=== PATIENT | female | born 1995 | race Asian ===

== ENCOUNTER 2019-02-05 11:48 | Emergency (ER) | payer MEDICAID ==
[~2019-02-05] VITALS: Ht 162.6 cm; Wt 56.7 kg
--- NOTE | 2019-02-05 12:00 | NUR ---
ED Nurse Note: Patient came with painful lump on right breast for 1 week. Patient placed on hospital gown, skin intact.
[2019-02-05 12:03] VITALS: BP 102/69
--- NOTE | 2019-02-05 12:04 | NUR ---
ED Nurse Note: PA at bedside
[2019-02-05] MEDS ORDERED: Omnipaque-300 100ml vial INJ PRN (12:15)
[2019-02-05 12:29] LABS: BASOPHILS % (AUTO) 0.9 % (0.0-2.0); EOSINOPHILS % (AUTO) 3.5 % (0.0-3.0); HEMATOCRIT 38.5 % (37.0-47.0); HEMOGLOBIN 12.6 G/DL (12.0-16.0); LYMPHOCYTES % (AUTO) 35.8 % (20.0-45.0); MEAN CORPUSCULAR VOLUME 89 FL (80-99); MONOCYTES % (AUTO) 7.3 % (1.0-10.0); NEUTROPHILS % (AUTO) 52.6 % (45.0-75.0); PLATELET COUNT 240 K/UL (150-450); RED BLOOD COUNT 4.31 M/UL (4.20-5.40); RED CELL DISTRIBUTION WIDTH 10.7 % (11.6-14.8); WHITE BLOOD COUNT 6.7 K/UL (4.8-10.8)
[2019-02-05 12:43] LABS: ANION GAP 9 mmol/L (5-15); BLOOD UREA NITROGEN 12 mg/dL (7-18); CALCIUM 8.9 MG/DL (8.5-10.1); CARBON DIOXIDE 28 MMOL/L (21-32); CHLORIDE 105 MMOL/L (98-107); CREATININE 0.7 MG/DL (0.55-1.30); POTASSIUM 3.8 MMOL/L (3.5-5.1); SODIUM 141 MMOL/L (136-145)
[2019-02-05 12:47] LABS: ALANINE AMINOTRANSFERASE 18 U/L (12-78); ALKALINE PHOSPHATASE 48 U/L (46-116); ASPARTATE AMINO TRANSFERASE 15 U/L (15-37); BILIRUBIN,TOTAL 0.4 MG/DL (0.2-1.0)
--- NOTE | 2019-02-05 13:00 | NUR ---
ED Nurse Note: Urine collected and sent to lab
--- NOTE | 2019-02-05 14:41 | Diagnostic Imaging Report ---
Clinical Indication: Chest pain, mass, lump on right breast for one week Technique: IV administration nonionic contrast. Spiral acquisition obtained through the chest. Multiplanar reconstructions generated. Total dose length product 530 mGycm. CTDIvol(s) 45 mGy. Dose reduction achieved using automated exposure control Comparison: none Findings: The lungs are clear. No infiltrates, effusions, masses, nodules, or congestion demonstrated. The breasts are overall unremarkable. There is equivocally slightly asymmetrically increased breast tissue on the right as compared to the left. There is a slight hemispheric-shaped protuberance coming off of the upper anterior portion of the parenchymal cone which could indicate underlying mass, but this cannot be stated with any certainty as it is isoattenuating to the surrounding breast tissue. No axillary adenopathy demonstrated. The heart size is normal. No mediastinal or hilar mass or adenopathy. The thyroid is unremarkable. Included upper abdominal anatomy is unremarkable. The bones are unremarkable. Impression: Slight anterior protuberance from the upper right breast parenchymal cone as described, could indicate an isoattenuating underlying mass but this cannot be stated with any certainty. Recommend sonography for evaluation of described right or breast lump if clinically indicated No acute or significant abnormality otherwise The CT scanner at [facility] is accredited by the [employer] and the scans are performed using protocols designed to limit radiation exposure to as low as reasonably achievable to attain images of sufficient resolution adequate for diagnostic evaluation.
--- NOTE | 2019-02-05 14:49 | Emergency Room Report ---
History of Present Illness General Chief Complaint: Pain Source: Patient Present Illness HPI 24-year-old female with no significant past medical history here complaining and enlarged breast mass in the right breast. Patient reports that the mass has been there for the past year however past week she noticed that it has been growing in size. Patient denies any pain or pus drainage at the site of mass. Denies history of breast cancer, ovarian cancer, BRCA gene. a round semi- mobile mass noted in the right breast at 11 O clock . Patient is in no discomfort denies pain. Denies chest pain, shortness of breath, palpitation, and other associated symptoms. Denies nipple discharge. Both breasts look symmetrical Allergies: Coded Allergies: No Known Allergies (Unverified , 02/05/19) Patient History Past Medical History: see triage record Past Surgical History: unable to obtain Pertinent Family History: none Last Menstrual Period: 01/23/19 Now: No Immunizations: UTD Reviewed Nursing Documentation: PMH: Agreed; PSxH: Agreed Nursing Documentation-PMH Past Medical History: No Stated History Review of Systems All Other Systems: negative except mentioned in HPI Physical Exam Vital Signs Date Time Temp Pulse Resp B/P (MAP) Pulse Ox O2 Delivery O2 Flow Rate FiO2 02/05/19 11:51 98.8 83 15 102/69 (80) 99 Room Air Sp02 EP Interpretation: reviewed, normal General Appearance: no apparent distress, alert, GCS 15, non-toxic Head: normocephalic, atraumatic Eyes: bilateral eye normal inspection, bilateral eye PERRL ENT: hearing grossly normal, normal pharynx, no angioedema, normal voice Neck: full range of motion, supple/symm/no masses Respiratory: chest non-tender, lungs clear, normal breath sounds, no rhonchi, speaking full sentences Cardiovascular #1: regular rate, rhythm, no edema, no murmur Gastrointestinal: non tender, soft Rectal: deferred Musculoskeletal: back normal, other - round semi mobile hard mass right breast at 11 O' clock Neurologic: alert, motor strength/tone normal, oriented x3, sensory intact, responsive, speech normal Psychiatric: judgement/insight normal, memory normal, mood/affect normal, no suicidal/homicidal ideation Skin: no rash Lymphatic: no adenopathy Medical Decision Making PA Attestation All diagnoses and treatment plans were reviewed and discussed with my supervising physician Dr. Arevalo Diagnostic Impression: Primary Impression: Breast mass, right ER Course 24-year-old female with no significant past medical history here complaining and enlarged breast mass in the right breast. Patient reports that the mass has been there for the past year however past week she noticed that it has been growing in size. Patient denies any pain or pus drainage at the site of mass. Denies history of breast cancer, ovarian cancer, BRCA gene. a round semi- mobile mass noted in the right breast at 11 O clock . Patient is in no discomfort denies pain. Denies chest pain, shortness of breath, palpitation, and other associated symptoms. Denies nipple discharge. Both breasts look symmetrical Ddx considered but are not limited to : Breast abscess, fibroadenoma, breast cyst, benign mass, malignant mass Vital signs: are WNL, pt. is afebrile H&PE are most consistent with: Breast mass in the right breast ORDERS: CT scan of chest, CBC and CMP, urine test ED INTERVENTIONS: None required at this time. DISCHARGE: At this time pt. is stable for d/c to home. Will provide printed patient care instructions, and any necessary prescriptions. Care plan and follow up instructions have been discussed with the patient prior to discharge. Patient to follow-up with her primary care provider for screening mammogram and ultrasound of the right breast. CT scan was inconclusive in regards to the malignancy however did recognize the presence of mass. If worsening symptoms return to emergency room. CT/MRI/US Diagnostic Results CT/MRI/US Diagnostic Results : Imaging Test Ordered: CT chest Impression Breast mass noted Last Vital Signs Date Time Temp Pulse Resp B/P (MAP) Pulse Ox O2 Delivery O2 Flow Rate FiO2 02/05/19 12:03 98.8 84 15 102/69 99 Room Air Disposition: HOME, SELF-CARE Condition: Stable Scripts No Active Prescriptions or Reported Meds Referrals: NOT CHOSEN IPA/MD,REFERRING (PCP) Patient Instructions: Breast Biopsy, [id number] Additional Instructions: Follow-up with your primary care provider for breast ultrasound and possibly mammogram. If worsening symptoms return to the emergency room Aravind Vega Feb 05, 2019 14:49
--- NOTE | 2019-02-05 15:00 | NUR ---
ER DISCHARGE NOTE: Patient is cleared to be discharged per ERMD, pt is aox4, on room air, with stable vital signs. pt was given dc and prescription instructions, pt was able to verbalize understanding, pt id band removed without complications. pt is able to ambulate with steady gait. pt took all belongings.
[2019-02-05 15:21] VITALS: BP 105/65
== END 2019-02-05 15:00 | disposition home or self-care (01) ==
LOC: EMR 14:20
DX: N63.10 Unspecified lump in the right breast, unspecified quadrant (principal)
CPT/HCPCS: 36415; 71260; 80053; 81025; 85025; Q9967; Z7502; 99284